=== PATIENT | female | born 2005 | race Caucasian/White ===

== ENCOUNTER 2023-05-08 11:00 | Outpatient (RCR) | payer BC, SELFPAY | END 2023-05-08 12:30 | disposition home or self-care (01) | PROVIDERS: PCP Pediatrics; Visit Provider Orthopaedic Surgery Sports Medicine | DX: M22.2X2 Patellofemoral disorders, left knee (principal); Z51.89 Encounter for other specified aftercare | CPT/HCPCS: 97110; 97112; 97161 ==

== ENCOUNTER 2024-08-12 10:02 | Outpatient (CLI) | payer BC, SELFPAY ==
--- NOTE | 2024-08-12 10:15 | CRLHL7_ITS ---
For Patients: As a result of the Century Cures Act, medical imaging exams and procedure reports are released immediately into your electronic medical record. You may view this report before your referring provider. If you have questions, please contact your health care provider. Technique: Double-contrast upper GI performed after the uneventful administration of effervescent crystals and thick barium followed by thin barium. Small-bowel follow-through then performed. Fluoroscopy time 1 minute 59 seconds.. Indication: ABDOMINAL PAIN, GENERALIZED Comparison: CT 01/29/2024 Findings: Swallowing mechanism: Normal. Esophageal motility: Normal. Gastroesophageal reflux: None. Hernia: None. Esophagus, stomach and duodenal bulb mucosa: Normal mucosa. No stricture or mass. Small bowel: Small bowel transit time 75 minutes. Normal jejunal fold pattern. Unremarkable ileum. No inflammatory changes. No stricture. No fistula. Impression: Normal double-contrast upper GI. Normal small bowel follow-through. Increased stool in the visualized colon could suggest constipation. Dictated by Jeovany Mullen MD @ 08/13/2024 1:30:38 PM (Electronically Signed)
== END 2024-08-12 10:03 | disposition home or self-care (01) ==
PROVIDERS: PCP Family Medicine; Visit Provider Family Medicine
DX: R10.9 Unspecified abdominal pain (principal)
CPT/HCPCS: 74246; 74248

== ENCOUNTER 2024-09-07 00:09 | Emergency (ER) | payer BC, SELFPAY ==
[2024-09-07 00:16] VITALS: BP 132/74; PULSE 99; RESP 20; TEMP 36.9; O2SAT 99; BMI 36.6
--- NOTE | 2024-09-07 00:41 | ED_ITS ---
HPI - General Adult General Chief complaint: Abdominal Pain Stated complaint: Severe abdominal pain Time Seen by Provider: 09/07/24 00:09 Source: patient and family Mode of arrival: ambulatory Limitations: no limitations History of Present Illness HPI narrative: 19-year-old female presents the emergency department with her mother. She has a history of abdominal pain ongoing for 9 months. She has had extensive o utpatient workup per her history regarding this exact same abdominal pain. She reports that the pain was more frustrating than usual tonight she had difficulty sleeping. She tells me that the pain is typically stabbing but then tells me that the pain is typically achy. Pain is located underneath the bilateral ribs but also in the periumbilical area. She has had extensive workup and medication trials. She reports prior colonoscopy, EGD with biopsies, small-bowel follow- through, testing for small bowel bacterial overgrowth. She has seen GI, rheumatology. She has been placed on lots of different elimination diets. The EGD was normal except for some mild gastritis. She reports that she was treated with Prilosec for 3-4 months but did not find helpful, therefore is no longer using it. Reports that she has had multiple CT scans, ultrasound and lab work. Reports no improvement from Tylenol, ibuprofen or Aleve in the past. She was seen in an outside ED, I do not have those records and apparently was given some oxycodone. She reports that it made her feel very drowsy but it did improve her pain. She is not hoping for more of that medication today. She is not noticing any persistent vomiting, bloody stools or any other red flags. Denies significant alcohol intake, prior history pancreatitis or other acute injury, trauma or symptoms today. She presents in the middle of the night with an adult female relative. She has no prior history of abdominal surgery, denies any medication allergies. She is on several medications to help with her pain. Past medical history notable for depression, insomnia. Reports home medications are Celebrex 200 mg twice daily for arthralgias which she has been on since March. Also takes fluoxetine, gabapentin, phentermine, duloxetine and trazodone. Also uses Zofran several times per week. There is also furosemide listed in her chart but she does not report taking that medication. No known drug allergies. Nonsmoker. ROS is notable for the GI symptoms as above. Otherwise benign or stable for her times 12 systems. Related Data Home Medications ?Medication ?Instructions ?Recorded ?Confirmed celecoxib 200 mg capsule 200 mg PO BID 09/07/24 09/07/24 fluoxetine 20 mg capsule 20 mg PO DAILY 09/07/24 09/07/24 furosemide 20 mg tablet 20 mg PO QAM 09/07/24 09/07/24 gabapentin 300 mg capsule 300 mg PO QPM 09/07/24 09/07/24 phentermine 15 mg capsule 15 mg PO DAILY 09/07/24 09/07/24 trazodone 50 mg tablet 50 mg PO QPM 09/07/24 09/07/24 Previous Rx's ?Medication ?Instructions ?Recorded famotidine 20 mg tablet 20 mg PO BID #60 tabs 09/07/24 sucralfate 1 gram tablet 1 g PO TID PRN #90 tabs 09/07/24 Allergies Allergy/AdvReac Type Severity Reaction Status Date / Time No Known Drug Allergies [facility] Verified [facility]07[facility]24 00[facility] Medical History Flat feet ?M21.41 - Flat foot [pes planus] (acquired), right foot (ICD-10) ?M21.42 - Flat foot [pes planus] (acquired), left foot (ICD-10) Anxiety ?F41.9 - Anxiety disorder, unspecified (ICD-10) Sprain of left ankle ?S93.402A - Sprain of unspecified ligament of left ankle, initial encounter (ICD-10) Surgical History [place] teeth extracted ?K08.409 - Partial loss of teeth, unspecified cause, unspecified class (ICD- 10) Social History Smoking Status: Never smoker Second hand tobacco smoke exposure: No How often do you have a drink containing alcohol: never AUDIT-C Alcohol total score: 0 Non-prescribed substance use: denies use Exam Const: Vital Signs, click to edit/add: Vital Signs - 24 hr 09/07/24 00:16 Temperature 98.5 F Pulse Rate [Right Pulse Oximeter] 99 Respiratory Rate 20 Blood Pressure [Ri ght Upper Arm] 132/74 Pulse Oximetry 99 Oxygen Delivery Me thod Room Air Documenting provider has reviewed patient's vital signs: yes General appearance: well kempt Other: Tearful, relies on adult relative to help sit her up when it is clear she really could do this on her own. We do observe her walking from her car to the door but then is wheel chaired in. She is well-nourished, well-hydrated insight does seem good. HENMT: Common normals: normocephalic, moist oral mucous membranes, oropharynx normal and dentition normal Head and scalp: normocephalic Eye: Common normals: conjunctivae normal General eye: normal appearance of both eyes Conjunctiva: conjunctiva(e) normal Neck & C-Spine: Common normals: full ROM and no lymphadenopathy Resp: Common normals: normal respiratory effort, no use of accessory muscles and clear to auscultation bilaterally Effort & inspection: able to speak in complete sentences Auscultation: clear to auscultation bilaterally Cardio: Common normals: regular rate, regular rhythm, S1 normal heart sound, S2 normal heart sound and no murmurs Rate: regular rate Rhythm: regular rhythm Heart sounds: S1 normal and S2 normal GI: Common normals: Normal to inspection, nondistended, normoactive bowel sounds present, soft to palpation, no hepatosplenomegaly and no masses Pal pation: soft and no hepatosplenomegaly Other: Diffusely tender to palpation, seems to linger mostly over the epigastric region. There is certainly no rebound tenderness nor guarding. : Common normals: no CVA tenderness Bladder/kidney exam: no CVA te nderness Back & Pelvis: Common normals: no CVA tenderness and thoracic and lumbar spine normal to inspection Extremity: Common normals: normal to inspection and no pedal edema Neuro: Speech: speech normal Motor exam: strength 5/5 throughout and no movement abnormalities noted Psych: Appearance: well kempt Insight: fair Judgement: fair Skin: Common normals: no rashes or lesions noted General skin exam: no rashes or lesions noted Course Course ED Course: 19-year-old female with chronic abdominal pain and extensive outpatient workup. Differential diagnosis seems more suspicious for chronic gastritis, chronic pain disorder rather than something more acute like appendicitis, pancreatitis, perforated ulcer, gallbladder disease, biliary colic, gallstone or cholecystitis. Exam not suspicious for small bowel obstruction or pelvic etiology. She does report workup for all of these things in the past. Counseled patient that in the emergency department in the middle of the night, I may not have the ability to do any additional tests than what has already been performed. I also will not be reviewing her extensive prior workup to give long-term recommendations today. I would recommend that we check for any acute conditions by performing a CBC, comprehensive metabolic panel to look for biliary obstruction, lipase level, CRP, urinalysis and test. Will give famotidine, GI cocktail and a dose of Carafate to see if this improves her symptoms. I would recommend that she restart famotidine and Carafate as an ou tpatient if this is successful. Reevaluation(s) Time of Reevaluation #1: 01:45 Reevaluation #1: Patient did have improvement with GI cocktail and famotidine, suspected was mainly the GI cocktail. The sucralfate really had not had enough time to work at the time of re-evaluation. We reviewed her labs, current symptoms and treatment plan. At this time, there does not appear to be any emergent or dangerous threats to her health. She was reassured by this. We discussed next steps in management. I would like to start her on famotidine twice daily for the next week. She will follow up with her primary care doctor in a week. She may decrease the famotidine to once daily after 2 weeks. She is given a prescription for sucralfate to take up to 4 times daily but recommend twice daily for now, decreasing as able as symptoms improve over the next few days. Alarm symptoms like hematemesis, bloody stools, high fever, inability to eat and drink were reviewed as indications to come back to the ED and she verbalizes understanding and agreement. We did discuss her Celebrex. At this time the b enefit does seem to outweigh the risk going to think it is contributing to her chronic gastritis. At this time I do think it is safe for her to continue if we can mitigate some of the irritation caused with the famotidine and Carafate. She agrees with this plan and will follow up with her primary care team. Vital Signs Vital signs: Initial Vital Signs Temperature 98.5 F 09/07/24 00:16 Temperature Source Temporal Artery Scan 09/07/24 00:16 Pulse Rate 99 09/07/24 00:16 Respiratory Rate 20 09/07/24 00:16 Blood Pressure 132/74 09/07/24 00:16 Blood Pressure Mean 93 09/07/24 00:16 Blood Pressure Position Sitting 09/07/24 00:16 Pulse Oximetry 99 09/07/24 00:16 Oxygen Delivery Method Room Air 09/07/24 00:16 Vital Signs Temperature 98.5 F 09/07/24 00:16 Pulse Rate 99 09/07/24 00:16 Respiratory Rate 20 09/07/24 00:16 Blood Pressure 132/74 09/07/24 00:16 Pulse Oximetry 99 09/07/24 00:16 Oxygen Delivery Method Room Air 09/07/24 00:16 Temperature 98.5 F 09/07/24 00:16 Pulse Rate 99 09/07/24 00:16 Respiratory Rate 20 09/07/24 00:16 Blood Pressure 132/74 09/07/24 00:16 Pulse Oximetry 99 09/07/24 00:16 Oxygen Delivery Method Room Air 09/07/24 00:16 Medications Administered Medications: Generic Name Dose Route Start Last Admin Trade Name Freq PRN Reason Stop Dose Admin Famotidine 20 mg 09/07/24 09:00 09/07/24 00:57 Famotidine 20 Mg Tablet PO 20 mg DAILY JUDY Administration Lidocaine/Aluminum/Magnesium/Simeth 30 ml 09/07/24 00:38 09/07/24 00:57 Gi Cocktail (Visc Lido/Antacid) 30 Ml PO 09/07/24 00:39 30 ml ONCE ONE Administration Sucralfate 1 gm 09/07/24 00:39 09/07/24 01:16 Sucralfate 1 Gm Tablet PO 09/07/24 00:40 1 gm ONCE ONE Administration Medical Decision Making Lab Data Lab results reviewed: Yes I reviewed the patient's lab results Lab results narrative: Reassuring labs. Labs: Lab Results 09/07/24 09/07/24 Range/Units 00:50 01:05 WBC 8.27 (4.50-11.00) K/uL RBC 4.41 (4.00-5.20) m/uL Hgb 13.3 (12.0-16.0) gm/dL Hct 40.9 (33.0-51.0) % MCV 93 (80-100) fL MCH 30 (26-34) pg MCHC 33 (32-36) gm/dL RDW Coeff of Zayra 12.6 (11.5-15.5) % Plt Count 262 (140-440) K/uL Neut % (Auto) 53.7 (42.0-72.0) % Lymph % (Auto) 37.2 (20-44) % [place] % (Auto) 6.3 (0.0-11.0) % Eos % (Auto) 1.6 (0.0-7.0) % Baso % (Auto) 0.4 (0.0-3.0) % Neut # (Auto) 4.44 (1.7-7.0) K/uL Lymph # (Auto) 3.08 H (0.90-2.90) K/uL [place] # (Auto) 0.50 (0.00-0.90) K/UL Eos # (Auto) 0.13 (0.00-0.50) K/uL Baso # (Auto) 0.03 (0.00-0.30) K/uL Abs Immat Gran (auto) 0.07 (0.00-0.30) K/uL Imm/Tot Granulo (auto) 0.8 % Sodium 137 (135-149) mmol/L Potassium 4.3 (3.6-5.1) mmol/L Chloride 104 (96-114) mmol/L Carbon Dioxide 26 (20-32) mmol/L Anion Gap 7 (7-15) mEq/L BUN 14 (5-24) mg/dL Creatinine 0.7 (0.5-1.5) mg/dL Estimated Creat Clear 114.40 Estimated GFR 126 ml/min Glucose 93 (60-115) mg/dL Calcium 9.6 (8.4-10.6) mg/dL Total Bilirubin < 0.1 L (0.1-1.5) mg/dL AST 32 (12-35) U/L ALT 47 H (4-35) U/L Alkaline Phosphatase 112 (40-150) U/L C-Reactive Protein 1.1 H (0.5-1.0) mg/dL Total Protein 7.2 (6.0-8.3) g/dL Albumin 4.0 (3.3-5.0) g/dL Lipase 45 (23-300) U/L Urine Color Yellow (Yellow) Urine Appearance Clear (Clear) Urine pH 6.5 (5.0-8.5) Ur Specific [place] 1.020 (1.000-1.030) Urine Protein Negative (Negative) Urine Glucose (UA) Negative (Negative) Urine Ketones Negative (Negative) Urine Blood Trace-intact A (Negative) Urine Nitrite Negative (Negative) Urine Bilirubin Negative (Negative) Urine Urobilinogen 0.2 (0.2-1.0) Ur Leukocyte Esterase Negative (Negative) Urine RBC 0-2 (0-2) Urine WBC 2-5 (0-5) Ur Squamous Epith Cells Few (None-Few) Amorphous Sediment Few A (None) Urine Bacteria Moderate A (None) Urine HCG, Qual Negative (Negative) Discharge Plan Discharge Clinical Impression: Chronic gastritis Patient Disposition: Home w/ Parent or Adult Condition: Improved Instructions: Gastritis (DC), Diet for Stomach Ulcers and Gastritis (ED) Additional Instructions: As we discussed, I think that your pain is complex. I do think that there is an element of chronic abdominal pain but there is also likely some acute irritation causing worsening of your symptoms today. This is very common in people that take NSAIDs like Celebrex. Celebrex is actually the safest of that family of medications but is still likely to cause some chronic irritation. Try to avoid any drinks with carbonation. Obviously avoid alcohol and smoking. I would rec ommend that you start taking famotidine 20 mg twice daily for the next couple of weeks and then you may decrease it to once daily. While the pain is still bothersome, I would recommend adding and Carafate also known as sucralfate up to 4 times daily for abdominal pain. For most people, twice daily is sufficient, weaning off of this as your symptoms improve over the next few days. Please make a follow-up appoint with her primary care doctor in week to update him or her on how things are going on this new medication regimen. At this time, I do not think that you need to stop the Celebrex or any of the other medications that could possibly be contributing. I think we just need to find a medication to help balance out some of those side effects for you. Remember that the emergency department is unfortunately not a great place to workup chronic symptoms. You should come back if you have severe vomiting, signs of rectal bleeding, very high fever or have been unable to hold down any liquids for over 16 hours. Prescriptions: New famotidine 20 mg tablet 20 mg PO BID Qty: 60 2RF sucralfate 1 gram tablet 1 g PO TID PRNQty: 90 0RF No Action celecoxib 200 mg capsule 200 mg PO BID trazodone 50 mg tablet 50 mg PO QPM phentermine 15 mg capsule 15 mg PO DAILY gabapentin 300 mg capsule 300 mg PO QPM furosemide 20 mg tablet 20 mg PO QAM fluoxetine 20 mg capsule 20 mg PO DAILY Follow Up/Referrals: Darlene Erwin MD [Primary Care Provider] - Stand Alone Forms: [facility] Info Instructions
[2024-09-07 00:57] LABS: Basophils Absolute Auto 0.03 K/uL (0.00-0.30); Basophils Percent Auto 0.4 % (0.0-3.0); Eosinophils Absolute Auto 0.13 K/uL (0.00-0.50); Eosinophils Percent Auto 1.6 % (0.0-7.0); Hematocrit 40.9 % (33.0-51.0); Hemoglobin* 13.3 gm/dL (12.0-16.0); Immature Granulocytes Abs Auto 0.07 K/uL (0.00-0.30); Immature Granulocytes Pct Auto 0.8 %; Lymphocytes Absolute Auto 3.08 K/uL (0.90-2.90); Lymphocytes Percent Auto 37.2 % (20-44); Mean Corpuscular HGB Conc 33 gm/dL (32-36); Mean Corpuscular Hemoglobin 30 pg (26-34); Mean Corpuscular Volume 93 fL (80-100); Monocytes Percent Auto 6.3 % (0.0-11.0); Neutrophils Absolute Auto 4.44 K/uL (1.7-7.0); Neutrophils Percent Auto 53.7 % (42.0-72.0); Platelet Count* 262 K/uL (140-440); RDW Coefficient of Variation % 12.6 % (11.5-15.5); Red Blood Count 4.41 m/uL (4.00-5.20); White Blood Count* 8.27 K/uL (4.50-11.00)
[2024-09-07] MEDS: FAMOTIDINE 20 MG TABLET PO (00:57)
[2024-09-07] MEDS: GI COCKTAIL (VISC LIDO/ANTACID) 30 ML PO (00:57)
[2024-09-07 01:05] LABS: Slide Review Reflex No
[2024-09-07 01:10] LABS: Chloride* 104 mmol/L (96-114)
[2024-09-07 01:11] LABS: Potassium* 4.3 mmol/L (3.6-5.1); Sodium* 137 mmol/L (135-149)
[2024-09-07 01:13] LABS: Alkaline Phosphatase* 112 U/L (40-150); Anion Gap 7 mEq/L (7-15); Aspartate Amino Transferase* 32 U/L (12-35); Carbon Dioxide* 26 mmol/L (20-32); Creatinine* 0.7 mg/dL (0.5-1.5); Estimated Glomerular Filt Rate 126 ml/min; Lipase* 45 U/L (23-300); Total Protein* 7.2 g/dL (6.0-8.3)
[2024-09-07 01:14] LABS: Alanine Aminotransferase* 47 U/L (4-35); Blood Urea Nitrogen* 14 mg/dL (5-24); Calcium* 9.6 mg/dL (8.4-10.6); Glucose* 93 mg/dL (60-115)
[2024-09-07 01:16] LABS: C Reactive Protein* 1.1 mg/dL (0.5-1.0)
[2024-09-07] MEDS: SUCRALFATE 1 GM TABLET PO (01:16)
[2024-09-07 01:17] LABS: Bilirubin Total* < 0.1 mg/dL (0.1-1.5)
[2024-09-07 01:18] LABS: Appearance Urine Clear (Clear); Bilirubin Urine Negative (Negative); Blood Urine Trace-intact (Negative); Color Urine Yellow (Yellow); Glucose Urine Negative (Negative); Ketones Urine Negative (Negative); Leukocyte Esterase Urine Negative (Negative); Nitrite Urine Negative (Negative); Protein Urine Negative (Negative); Urobilinogen Urine 0.2 (0.2-1.0); pH Urine 6.5 (5.0-8.5)
[2024-09-07 01:19] LABS: Ur HCG Qualitative* Negative (Negative)
[2024-09-07 01:42] LABS: Amorphous Sediment Urine Few; Bacteria Urine Moderate; RBC Urine 0-2 (0-2); Squamous Epithelial Cell Urine Few (None-Few)
[2024-09-07 01:49] VITALS: BP 124/68; PULSE 84; RESP 20; TEMP 36.9; O2SAT 99
[2024-09-07 01:50] VITALS: BP 124/68; PULSE 84; RESP 20; TEMP 36.9
== END 2024-09-07 01:50 | disposition home or self-care (01) ==
PROVIDERS: Emergency Provider Family Medicine; PCP Family Medicine
DX: K29.50 Unspecified chronic gastritis without bleeding (principal)
CPT/HCPCS: 36415; 80053; 81001; 81003; 81025; 83690; 85025; 86140; 87086; 99283; 99284; A9270

== ENCOUNTER 2025-09-24 20:19 | Emergency (ER) | payer BC, SELFPAY ==
--- OUTSIDE RECORDS SUMMARY | 2024-04-23 08:08 | XMS_ITS | Continuity of Care Document ---
Author Organization [facility] Address [address] [address] [place] [address] Phone Care Team Providers Care Sole Painter Name Role Phone Unavailable Unavailable Unavailable Allergies, Adverse Reactions, Alerts Substance Reaction Status Criticality peanut Abdominal bloating Active No Inform ation mushroom Active No Information adhesive tape Rash Active No Information Medications Medication Instructions Dosage Effective Dates (start - stop) Status Comments Prozac 10 mg capsule take 0.5 capsule by oral route every day 5 MG - Active Control Pill ORAL TABLET Take one tablet by mouth daily - Active Prilosec OTC 20 mg tablet,delayed release take 1 tablet by oral route every day 1 tablet - Active iron 325 mg (65 mg iron) tablet take 1 tablet by oral route every day 325 MG - Active Procedures Procedure Date Interpretation Breath Test Offic/outpt E&m Estab Mod-hi 2 Routine Serum Collection Colonoscopy Flex; W/remov Les- Colonoscopy Flex; W/bx 1/mx Level Iv-surg Path Gross/micro Advance Directives Directive Yes / No Effective Date File Name No Information Encounters Encounter Description Practice Location Reason(s) For Visit Diagnoses Date Provider Providers Copied on Encounter [facility], [address] [address], [place], [id number], [place] tel:[phone] [facility] No Information 4 No Information [facility], [address] [address], [place], [place], [id number], [place] tel:[phone] [facility] Abdominal distension (gaseous) 4 Renato KIM Oscar. [address] [facility], [facility] [address], [place], [id number], [place]. tel:[phone] Referring Provider: Darlene Goodson, [address], [place], [address]. tel:[phone] Offic/outpt E&m Estab Mod-hi 2 [facility], [address] [address], [place], [place], [id number], [place] tel:[phone] [facility] GI Symptoms or Concerns (chief complaint) Generalized abdominal painLoose stoolsBloating 4 Margaret Florian. [address] [facility], [address], [id number], [place]. tel:[phone] Referring Provider: Referral Self, USE FOR SELF REFERRALS. [facility], [address] [address], [place], [place], [id number], [place] tel:[phone] [facility] No Information 4 Franklin Davison. [address] [facility], [address], [id number], [place]. tel:[phone] [facility], [address] [address], [place], [place], [id number], [place] tel:[phone] [facility] GI Symptoms or Concerns (chief complaint) Colorectal polyp detected on colonoscopyLoos e stoolsAbnormal abdominal CT scanBenign neoplasm of ascending colonAbnormal findings on dx imaging of prt digestive tractRight upper quadrant painAbnormal findings on dx imaging of prt digestive tractOther fecal abnormalities 4 Tu Alarcon. [address] [facility], [address], [id number], [place]. tel:[phone] Referring Provider: Darlene Goodson, [address], [place], [address]. tel:[phone] [facility], [address] [address], [place], [place], [id number], [place] tel:[phone] [facility] No Information Franklin Davison. [address] [facility], [facility] [address], [place], [place], [id number], [place]. tel:[phone] Family History Family Member Type Diagnosis Age At Onset Sister Problem (finding) GERD Father Problem (finding) Colon polyps Father Problem (finding) Alcoholism Mother Problem (finding) Colon polyps Sister Problem (finding) Irritable bowel syndrom e Immunizations Vaccine Date Status Comments Afluria Qd administered Note: [facility] bi-directional interface ; Source: Other Registry SARS-COV-2 (COVID-19) vaccin e, mRNA, spike protein, LNP, preservative free, 50 mcg/0.5 mL dose administered Note: [facility] bi-direct ional interface ; Source: Other Registry SARS-COV-2 (COVID-19) vaccin e, mRNA, spike protein, LNP, preservative free, 30 mcg/0.3mL dose administered Note: [facility] bi-direct ional interface ; Source: Other Registry SARS-COV-2 (COVID-19) vaccin e, mRNA, spike protein, LNP, preservative free, 30 mcg/0.3mL dose administered Note: [facility] bi-direct ional interface ; Source: Other Registry SARS-COV-2 (COVID-19) vaccin e, mRNA, spike protein, LNP, preservative free, 30 mcg/0.3mL dose administered Note: [facility] bi-direct ional interface ; Source: Other Registry Afluria Qd administered Note: [facility] bi-directional interface ; Source: Other Registry Influenza, injectable, Madin Karen Canine Kidney, quadrivalent with preservative administered Note: [facility] bi-direct ional interface ; Source: Other Registry meningococcal oligosaccharid e (groups A, C, Y and W-135) diphtheria toxoid conjugate vaccine (MCV4O) administered Note: [facility] bi-direct ional interface ; Source: Other Registry Afluria Qd administered Note: [facility] bi-directional interface ; Source: Other Registry Afluria Qd administered Note: [facility] bi-directional interface ; Source: Other Registry Afluria Qd administered Note: [facility] bi-directional interface ; Source: Other Registry Havrix pediatric administered Note: [facility] bi-directional interface ; Source: Other Registry human papilloma virus vaccin e, quadrivalent administered Note: [facility] bi-direct ional interface ; Source: Other Registry human papilloma virus vaccin e, quadrivalent administered Note: [facility] bi-direct ional interface ; Source: Other Registry meningococcal oligosaccharid e (groups A, C, Y and W-135) diphtheria toxoid conjugate vaccine (MCV4O) administered Note: [facility] bi-direct ional interface ; Source: Other Registry Afluria Qd administered Note: [facility] bi-directional interface ; Source: Other Registry Havrix pediatric administered Note: [facility] bi-directional interface ; Source: Other Registry tetanus toxoid, reduced diphtheria toxoid, and acellular pertussis vaccine, adsorbed administered Note: [facility] b i-directional interface ; Source: Other Registry human papilloma virus vaccin e, quadrivalent administered Note: [facility] bi-direct ional interface ; Source: Other Registry influenza virus vaccine, isaac e, attenuated, for intranasal use administered Note: [facility] bi- directional interface ; Source: Other Registry Influenza, seasonal, injecta ble, preservative free administered Note: [facility] bi-direct ional interface ; Source: Other Registry Influenza, seasonal, injecta ble, preservative free administered Note: [facility] bi-direct ional interface ; Source: Other Registry Influenza, seasonal, injectable administe red Note: [facility] bi- directional interface ; Source: Other Registry Novel [id number], all formulations administered Note: [facility] bi-direct ional interface ; Source: Other Registry Influenza, seasonal, injecta ble, preservative free administered Note: [facility] bi-direct ional interface ; Source: Other Registry measles, mumps and rubella v irus vaccine administered Note: [facility] bi-direct ional interface ; Source: Other Registry poliovirus vaccine, inactivated administe red Note: [facility] bi- directional interface ; Source: Other Registry diphtheria, tetanus toxoids and acellular pertussis vaccine administered Note: [facility] b i-directional interface ; Source: Other Registry varicella virus vaccine administered Note : [facility] bi-directional interface ; Source: Other Registry influenza virus vaccine, isaac e, attenuated, for intranasal use administered Note: [facility] bi- directional interface ; Source: Other Registry Influenza, seasonal, injectable administe red Note: [facility] bi- directional interface ; Source: Other Registry Influenza, seasonal, injectable administe red Note: [facility] bi- directional interface ; Source: Other Registry DTaP-Haemophilus influenzae type b conjugate vaccine administered Note: [facility] bi-direct ional interface ; Source: Other Registry Pneumovax administered Note: [facility] bi-d irectional interface ; Source: Other Registry Influenza, seasonal, injectable administe red Note: [facility] bi- directional interface ; Source: Other Registry varicella virus vaccine administered Note : [facility] bi-directional interface ; Source: Other Registry measles, mumps and rubella v irus vaccine administered Note: [facility] bi-direct ional interface ; Source: Other Registry DTaP-hepatitis B and poliovi kaleigh vaccine administered Note: [facility] bi-direct ional interface ; Source: Other Registry Pneumovax administered Note: [facility] bi-d irectional interface ; Source: Other Registry Haemophilus influenzae type b vaccine, HbOC conjugate administered Note: [facility] bi-di rectional interface ; Source: Other Registry DTaP-hepatitis B and poliovi kaleigh vaccine administered Note: [facility] bi-direct ional interface ; Source: Other Registry Pneumovax administered Note: [facility] bi-d irectional interface ; Source: Other Registry Haemophilus influenzae type b vaccine, HbOC conjugate administered Note: [facility] bi-di rectional interface ; Source: Other Registry DTaP-hepatitis B and poliovi kaleigh vaccine administered Note: [facility] bi-direct ional interface ; Source: Other Registry Pneumovax administered Note: [facility] bi-d irectional interface ; Source: Other Registry Haemophilus influenzae type b vaccine, HbOC conjugate administered Note: [facility] bi-di rectional interface ; Source: Other Registry Energix Pediatric administered Note: [facility] bi-directional interface ; Source: Other Registry Payers Payer name Insurance type Covered democrat ID Dinesh byrne(s) [facility] [id number] Social History Type Description Quantity Date Captured Comments Sex Female Smoking Status No Information Chief Complaint And Reason For Visit No Information Reason For Referral Reason For Referral No Information History Of Present Illness Encounter Date Complaint History Of Prese nt Illness GI Symptoms or Concerns Rico is a pleasant 18-year-old female who presents for evaluation of abdominal pain, nausea, irregular bowel habits. Patient developed acute onset of right lower quadrant abdominal pain at the end of November. She described the pain as sharp and stabbing. She presented to the emergency room where a CT scan and an ultrasound were obtained. CT scan revealed several borderline right lower quadrant mesenteric lymph nodes, likely infectious or inflammatory, otherwise no inflammatory changes in the GI tract, as well as fecal loading in the proximal colon and rectum. Ultrasound was normal with no evidence of stones or sludge.She then had an EGD while at school in [place]. Upper endoscopy revealed reflux esophagitis grade B with negative celiac biopsies and negative H pylori biopsies. A colonoscopy was done 02/18/2024 through [facility]. Colonoscopy. Endoscopically normal through the terminal ileum. One 15mm sessile serrated adenoma was removed from the ascending colon. Random GI Symptoms or Concerns Functional Status Date Functional Assessmen t No Information Instructions Date Instruction Additional Infor mation Colon Cancer Prevention Related to Colorectal polyp detected on colonoscopy Colon Polyps Related to Color ectal polyp detected on colonoscopy Assessments Type Assessment Date No Information Patient Care Teams Name Effective Dates (start - stop) Status Members No Information
--- OUTSIDE RECORDS SUMMARY | 2025-09-24 20:21 | XMS_ITS | Clinical Summary ---
Author Organization [facility] Address [address] [facility] [place] [address] Care Team Providers Care Carpenter Mold Name Role Phone Darlene Erwin Primary Care Provider [phone] Pepito Tejada MD Unavailable [phone] Pepito Tejada MD Unavailable [phone] Allergies Active AllergyReactionsCriticalityNoted DateCommentsAlmond BzwLliqc25/27/2024 [place] Nuts only Beef ZysktqsBbkbn07/27/2024lue Dyes (Parenteral)Hives12/24/2023at DanderHives, Other (See Comments)Kktlhi6904/29/2022LactoseDiarrhea,Other (See Comments),Nausea 04/29/20227420UkvmfxjpYxmkqlmitkbUipf13/04/0747FdqynhQyficBqkcmg08/17/2023No Known Drug Vvcboyj8306/20/2003PineAnaphylaxis,Other (See Comments)High04/14/2023 Abdominal pain Medications MedicationSigDispense QuantityRefillsLast FilledStart DateEnd DateStatus celecoxib (CELEBREX) 200 MG capsule Take 200 mg by mouth04/12/2024ctive dicyclomine (BENTYL) 20 MG tablet Take 20 mg by mouth01/01/2024ctive vitamin D2 (ERGOCALCIFEROL) 24783 units (1250 mcg) capsule Take 1 capsule by mouth once a weekActive traZODone (DESYREL) 50 MG tablet Take 1 tablet by mouth at bedtime.05/04/2024ctive DULoxetine (CYMBALTA) 30 MG capsule Take 30 mg by mouth.07/30/2024ctive ferrous sulfate (FE TABS) 325 (65 Fe) MG EC tablet Take 325 mg by mouth.Active norethindrone-ethinyl estradiol (JUNEL FE 10/18) 1-20 MG-MCG tablet Take 1 tablet by mouth daily.Active gabapentin (NEURONTIN) 300 MG capsule Take 1 capsule by mouth at bedtime.07/30/2024ctive ondansetron (ZOFRAN) 8 MG tablet Take by mouth.Active famotidine (PEPCID) 20 MG tablet Take 20 mg by mouth.5Active Active Problems ProblemNoted DateDiagnosed DateAcquired deformity of head2003 Overview (06/29/2015): Problem list name updated by automated process. Provider to review Immunizations ImmunizationAdministration DatesNext DueDTAP (<7y)05/26/2008DTaP/HepB/IPV 2003,2003,2003HIB (PRP-T)2003,2003,2003HepB 2003Influenza (H1N1)09/15/2009Influenza (IIV3) PF08/14/2012,09/15/2009, 08/14/2006,07/09/2005,07/23/2004Influenza Intranasal Ljzsqge1308/11/2007MMR (MMRII)05/26/2008,05/09/2004Pneumococcal (PCV 7)07/23/2004,2003,2003 ,2003Poliovirus, inactivated (IPV)05/26/2008TRIHIBIT (DTAP/HIB, <7y) 07/23/2004Varicella (Varivax)05/26/2008,05/09/2004 Family History Medical HistoryRelationCommentsCancerMaternal GrandfatherskinDepressionMaternal Grandmothertaking PaxilDepressionMaternal UncleAllergiesMotherCancerPaternal GrandfatherskinAlcohol/DrugPaternal Grandmotherdied 1997RelationStatusComments Maternal GrandfatherMaternal GrandmotherMaternal UncleMotherAliveLisaPaternal GrandfatherPaternal GrandmotherSisterAliveMadeline (Twin A) Social History Tobacco UseTypesPacks/DayYears UsedDateSmoking Tobacco: NeverAlcohol UseStandard Drinks/WeekCommentsNot Asked0 (1 standard drink = 0.6 oz pure alcohol)PHQ-2 AnswerDate RecordedPHQ-2 Afslf5205Adolescent EducationAnswerDate Recorded Getting School Help NeededNot on file4CommentsNoSex and Gender InformationValueDate RecordedSex Assigned at BirthNot on fileLegal SexFemale 08/02/2012 4:29 AM CSTGender IdentityNot on fileSexual OrientationNot on file Last Filed Vital Signs Vital SignReadingTime TakenCommentsBlood Bjnvywek091/8404/23/2024 5:55 PM CDT Lnyge83880/26/2024 5:55 PM VKJKhkmpdmzsqs65.7 ??C (98 ??F)04/23/2024 7:29 PM CDT Respiratory Jlmx4184 11:00 PM CDTOxygen Lezhmmpsqz28%04/23/2024 11:00 PM CDTInhaled Oxygen Concentration--Vpcmqb01.3 kg (210 lb)04/23/2024 5:55 PM CDT Tuioyn654.1 cm (5' 5)04/23/2024 5:55 PM CDTBody Mass Index34.9507 5:55 PM CDT Plan of Treatment Health MaintenanceDue DateLast DoneCommentsADVANCE CARE UPESDESH2003ANNUAL REVIEW OF HM TXZQZI30 2003CHLAMYDIA WHYDTSCQL2003HIV SCREENING 2018MENINGITIS B VACCINE (1 of 2 - Standard)2019HEPATITIS C TTXJAXBOH36/24/2021YEARLY PREVENTIVE VISIT/11/2019, 08/14/2012, 04/09/2011, Additional history gecratQGZ35/24/2024DTAP/TDAP/TD VACCINE (7 - Td or Tdap)/, 05/26/2008, 07/23/2004, Additional history exists COVID-19 VACCINE ( season), 09/19/2021, 02/13/2021, Additional history existsINFLUENZA VACCINE (#1)5111/19/2022, 06/01/2020, 10/02/2019, Additional history existsZOSTER VACCINE (1 of 2) 2053HEPATITIS B WJREABPKvnqqwxwl23/26/2004, 2003, 2003, Additional history existsPNEUMOCOCCAL VACCINE: PEDIATRICS (0 to 5 YEARS) AND AT- RISK PATIENTS (6 to 49 YEARS)Aged Out07/23/2004, 2003, 2003, Additional history existsNo longer eligible based on patient's age to complete this topicHPV NUMDDFASnrrydlcy52/16/2015, 08/04/2014, 05/17/2014MENINGITIS ZDVZKZJApanqjcwq74/20/2019, 06/16/2014PHQ-2 (once per calendar year)Completed 10/07/2024, 08/17/2024 Insurance Care Teams Team MemberRelationshipSpecialtyStart DateEnd Darlene Erwin [facility] [place] [address] PCP - GeneralFamily Medicine04/23/24 Pepito Tejada MD [address] [place] [address] IJRtqmrxjeyijtt11/6/24 Pepito Tejada MD [address] [place] [address] Assigned Surgical Pjimbani71/23/24
--- OUTSIDE RECORDS SUMMARY | 2025-09-24 20:21 | XMS_ITS | Clinical Summary ---
[facility] Address [address] [place] [address] Care Team Providers Care Sponsorship Manager Name Role Phone Unavailable Primary Care Provider Unavailabl e Source Comments You are receiving this document as you are listed as the primary care provider,follow-up provider, or the patient has been referred to you for consultation.This is in compliance with the Medicare andMedicaid EHR Incentive Program,which states Providers who transition their patient to another setting of careor provider of care or refers their patient to another provider of care shouldprovide summary care record for each transition of care or referral. [facility] Allergies Active AllergyReactionsCriticalityNoted DateCommentsLactoseDiarrhea, Gastrointestinal,Fhyynl2704/29/2022[place]akeAnaphylaxis,Hives,Itching,Rash, Respiratory UhoekbjtXdgl49/01/7247MisksxqzZwgfepnbblkYeru43/04/2024NickelHives High3PineOther, see cbpyqkvj75/17/2023 Abdominal pain Medications MedicationSigDispense QuantityRefillsLast FilledStart DateEnd DateStatus celecoxib (CELEBREX) 200 MG capsule Take 1 Capsule (200 mg) by mouth.4Active DULoxetine (CYMBALTA) 60 MG capsule Take 1 Capsule (60 mg) by mouth.5Active famotidine (PEPCID) 20 MG tablet Take 1 Tablet (20 mg) by mouth two times a day.Active furosemide (LASIX) 20 MG tablet Take 1 Tablet (20 mg) by mouth daily.Active gabapentin (NEURONTIN) 300 MG capsule Take 1 Capsule (300 mg) by mouth daily at bedtime.Active ondansetron (ZOFRAN) 4 MG tablet Take 1 Tablet (4 mg) by mouth two times a day.Active Phentermine HCl 30 MG capsule Take 1 Capsule (30 mg) by mouth daily.5Active traZODone (DESYREL) 50 MG tablet Take 1 Tablet (50 mg) by mouth.5Active Zinc Sulfate (ZINC 15 OR) Active fexofenadine (RED) 180 MG tablet Take 1 Tablet (180 mg) by mouth daily as needed.Active cholecalciferol (VITAMIN D3) 25 MCG (1000 UT) tablet Take 1 Tablet (1,000 Units) by mouth daily.Active Social History Tobacco UseTypesPacks/DayYears UsedDateSmoking Tobacco: Never Assessed CommentsUnknownSex and Gender InformationValueDate RecordedSex Assigned at Not on fileLegal MdtYehgea71/10/2025 8:42 AM CSTGender IdentityNot on fileSexual OrientationNot on file Last Filed Vital Signs Vital SignReadingTime TakenCommentsBlood Pressure--Pulse--Temperature-- Respiratory Rate--Oxygen Saturation--Inhaled Oxygen Concentration--Oaaugh975.9 kg (231 lb 3.2 oz)11/25/2024 1:02 PM KITLcpfjl737.8 cm (5' 4.5)11/25/2024 1:02 PM CSTBody Mass Index39.0711/25/2024 1:02 PM [employer] Plan of Treatment Health MaintenanceDue DateLast DoneCommentsCervical Cancer Screening Due 2003 7551Ehhhxgmjb2003Hep C Screening (Preventive Services)2003MenB Immunization Yohxgwtdna2003HIV Screening (Preventive Services)2019 Adult Preventive Visit2021HepB Vaccine (1)2COVID-19 Vaccine ( season)/, 09/19/2021, 02/13/2021, Additional history existsInfluenza Vaccine (#1)/, 06/01/2020, 10/02/2019, Additional history existsDTaP/Tdap/Td Vaccine (8 - Tdap)5011/02/2024, 05/17/2014, 05/26/2008, Additional history existsZoster/Shingles Vaccine (1 of 2)2053Hib GxandtqPydtmbbcs54/25/2004, 2003, 2003, Additional history existsPneumococcal VaccineAged Out07/23/2004, 2003, 2003, Additional history existsNo longer eligible based on patient's age to complete this topicIPV (Polio) WxsbwssCyduirtwx73/28/2008, 2003, 2003, Additional history existsHPV UgcrkneBndwozxht38/16/2015, 08/04/2014, 05/17/2014 HepA TuxlstfPqrjiktrg01/11/2015, 05/17/2014MCV4 SmtjycqJjaowylcj53/20/2019, 06/16/2014 Insurance * Guarantor: Yusra JacquesAccount TypeRelation to PatientDate of BirthPhone Billing AddressPersonal/ZmadcwMlvs2003 ([place]) [address] [place] [address]
--- OUTSIDE RECORDS SUMMARY | 2025-09-24 20:21 | XMS_ITS | Clinical Summary ---
Author Organization [facility] Address [address] [place] [address] Care Team Providers Care Outreach Rep Name Role Phone Darlene Erwin MD Primary Care Provide r Robert Rogel MD Unavailable Mark Al MD Unavailab le Allergies Active AllergyReactionsCriticalityNoted DateCommentsBasilAnaphylaxisHigh 5Beef Containing ProductsOther - Describe In Comment Field,HivesMedium 04/14/2023 Abdominal pain/nausea Blue CulHkzz8104/14/2023at DanderHives,Runny Nose,Other - Describe In Comment QfhipSxzvhn74/01/3900HmflbohgLguyoveuummVklg60/26/2025Emollient Combination No.93Ehnlf7912/08/2023LactoseDiarrhea,Intolerance-Can't Take,Nausea Only,GI Upset 04/29/2022[place] MushroomAnaphylaxis,Hives,Itching,Rash,Shortness Of Breath, Respiratory KbibatraFjrj43/01/1764PrlmxeetButpxcjtwfhEvji85/04/2024NickelHives High04/14/2023Unlisted Allergen (Include Detail In Comments)Hives04/14/2023 Gold plating [place] NutOther - Describe In Comment Field07/ Abdominal pain PsmnrntuhxJqejuaylexzAmjh77/26/2025 Medications MedicationSigDispense QuantityRefillsLast FilledStart DateEnd DateStatus sucralfate (CARAFATE) 1 gram tablet Take 1 Tablet by mouth once daily if needed.4Active acetaminophen (TYLENOL) 325 mg tablet Indications:Abdominal pain, unspecified abdominal locationTake 3 Tablets (975 mg) by mouth every 6 hours. Max acetaminophen dose: 4000mg in 24 hrs.11/08/2024 Active zinc sulfate (ZINC-15 ORAL) Active cholecalciferol 1,000 unit tablet Take 1,000 units by mouth once daily.Active fexofenadine 180 mg tablet Indications:Allergic to catsTake 180 mg by mouth once daily.5Active EPINEPHrine (EPIPEN) 0.3 mg/0.3 mL auto-injector Indications:Food allergyInject 0.3 mg (1 Pen) intramuscular each time if needed for Allergic Reaction. 2 Each 5Active orlistat (XENICAL) 120 mg capsule Indications:Class 3 severe obesity with body mass index (BMI) of 40.0 to 44.9 in adult (HC)Take 1 Capsule by mouth three times daily with meals. 90 Capsule 5Active traZODone (DESYREL) 100 mg tablet Indications:Insomnia, idiopathicTake 1 Tablet (100 mg) by mouth at bedtime. 100 Tablet 5Active ondansetron (ZOFRAN) 8 mg tablet Indications:NauseaTake 1 Tablet (8 mg) by mouth every 8 hours if needed for Nausea/Vomiting. 100 Tablet 5Active furosemide (LASIX) 40 mg tablet Indications:IIH (idiopathic intracranial hypertension)Take 1 Tablet (40 mg) by mouth once daily in the morning. 90 Tablet 5Active colchicine 0.6 mg tablet Indications:Undifferentiated connective tissue disease (HC),Arthralgia, unspecified jointTake 1 Tablet (0.6 mg) by mouth two times daily. 60 Tablet 5Active celecoxib 200 mg capsule Indications:Abdominal pain, unspecified abdominal locationTake 1 Capsule (200 mg) by mouth 2 times daily if needed for Pain. 100 Capsule 5Active DULoxetine (CYMBALTA) 20 mg Delayed-release capsule Indications:Adjustment disorder with depressed moodTake 2 Capsules (40 mg) by mouth once daily. 180 Capsule 5Active azithromycin (Zithromax Z-Ab) 250 mg tablet Indications:BronchitisTake 500 mg today and then 250 mg days 2-5 6 Tablet 5Active predniSONE (DELTASONE) 10 mg tablet Indications:BronchitisTake 3 Tablets (30 mg) by mouth once daily with a meal for 2 days, THEN 2 Tablets (20 mg) once daily with a meal for 2 days, THEN 1 Tablet (10 mg) once daily with a meal for 2 days. 12 Tablet 6Active colchicine 0.6 mg capsule Indications:Abdominal pain, unspecified abdominal location,Recurrent fever, Recurrent oral ulcersTake 1 Capsule (0.6 mg) by mouth two times daily. Please call for refills 180 Capsule Discontinued(*Med complete/Regimen complete/Level of care change) traZODone (DESYREL) 100 mg tablet Indications:Insomnia, idiopathicTake 1 Tablet (100 mg) by mouth at bedtime. 100 Tablet Discontinued(Reorder (E-cancel not sent)) norethin clarisa-eth estrad-fe (1-20 mg-mcg) (LOESTRIN FE 10/18; JUNEL FE 10/18) tablet Indications:Irregular periodsTake 1 Tablet by mouth once daily. 84 Tablet Discontinued(*Med complete/Regimen complete/Level of care change) naltrexone 4.5 mg cap Indications:Chronic pain disorderTake 1 Capsule by mouth once daily. 90 Capsule Discontinued(*Med complete/Regimen complete/Level of care change) ondansetron (ZOFRAN) 8 mg tablet Indications:NauseaTake 1 Tablet (8 mg) by mouth every 8 hours if needed for Nausea/Vomiting. 270 Tablet Discontinued(Reorder (E-cancel not sent)) celecoxib (CELEBREX) 200 mg capsule Indications:Abdominal pain, unspecified abdominal locationTake 1 Capsule (200 mg) by mouth 2 times daily if needed for Pain. 100 Capsule Discontinued(Reorder (E-cancel not sent)) DULoxetine (CYMBALTA) 60 mg Delayed-release capsule Indications:Adjustment disorder with depressed moodTake 1 Capsule (60 mg) by mouth once daily. 90 Capsule Discontinued(*Medication adjustment) famotidine (PEPCID) 20 mg tablet Indications:Continuous severe abdominal painTake 1 Tablet (20 mg) by mouth two times daily. 180 Tablet Discontinued(*Med complete/Regimen complete/Level of care change) furosemide (LASIX) 40 mg tablet Indications:IIH (idiopathic intracranial hypertension)Take 1 Tablet (40 mg) by mouth once daily in the morning. 90 Tablet Discontinued(Reorder (E-cancel not sent)) colchicine 0.6 mg tablet Indications:Undifferentiated connective tissue disease (HC),Arthralgia, unspecified jointTAKE ONE TABLET BY MOUTH TWICE A DAY 60 Tablet Discontinued(Reorder (E-cancel not sent)) Active Problems ProblemNoted DateDiagnosed DateMPP Encounter for nonprocreative genetic counseling and iavkwza7203/08/2025 Overview (03/08/2025): ADULT GC SRO - Completed [x] Patient name: Yusra Mckeon : 2005 Age: 19 y.o. Date of SRO: 03/08/2025 REFERRING PROVIDER/CLINIC LOCATION/FAX #: Mark Al MD [facility] Reason for referral: Periodic febrile genetic test Please schedule the following: [x] Genetic Counseling []15 [] 30 [x]45 []60 []Lab [] [facility] - Language Location ONLY WITH AV, MARTA, AP, or MAF [] In-person [] Virtual [x] Either Comments: See provider note for testing details Date:03/08/2025 GC: Sherly Bhatt, MS, CGC Urgency: 1-3 weeks *Please note, cannot be scheduled earlier than 1 week from SRO completion Abdominal pain, oezkpsdbxso65/22/2025Elevated C-reactive protein (CRP)01/18/2025 Continuous severe abdominal pain01/18/2025Empty sella10/22/2024IIH (idiopathic intracranial hypertension)05/04/2024Generalized anxiety zbpmeorm12/13/2021 Lactose yzqptvqncbq58/03/2020Irregular uqoirrj9506/01/2020 Resolved Problems ProblemNoted DateDiagnosed DateResolved UbjcLtidbjo23 Encounters DateTypeDepartmentCare IlqkNryyjivjhln05/26/2025 7:30 AM CSTOffice Visit [facility] [address] [place] [address] Darlene Erwin MD Follow Up (fever); Cough (Productive cough, fatigue, started about 8 days ago) 09/23/20259366Bsrxaa37/23/2025Refill [facility] [address] [facility] [address] [facility] [address] [place] [address] Mark Al MD Refill Request (Colchicine)from Last 3 Months Immunizations ImmunizationAdministration DatesNext DueAMB INFLUENZA, IIV4 (AGE=>6MOS) MDV (Flu Clinic Only)10/02/2019AMB Influenza, (Flumist) Live Intranasal,LAIV4 (Flu Clinic Only)07/26/2013MB Influenza, IIV3 (Age >=3 years)(Flu Clinic Only) 08/07/2010MB Influenza, IIV4 PF (=>6 mos Flulaval,Fluzone Fluarix)(Flu Clinic Only)08/11/2018COVID-19 VACCINE SPIKEVAX (MODERNA 50MCG/0.5ML) 12YO+ PFS 05/05/2025,3COVID-19 vaccine (SoftLayer 30mcg/0.3mL) PF, MDV 02/13/2021,2797JUfK64/28/2008DTaP-HIB (TriHIBIT)07/23/20044587EFwD-GkmH-DWT (Pediarix)2003,2003,2003HIB HbOC (HibTITER)2003, 2003,2003Hepatitis A (Peds)06/09/2015,05/17/2014Hepatitis B (Peds) 2003Human Papilloma Virus Hbzezrw0711/14/2014,08/04/2014,05/17/2014 Inactivated Polio Svcmsxy4405/26/2008Influenza A (H1N1), Inactivated (Age >=3 Years)09/15/2009Influenza Virus, Nrcomxmibmp46/04/2020,08/14/2012,07/23/2011, 08/07/2010,09/15/2009,08/14/2006,07/09/2005,07/23/2004Influenza, IIV3 (Age >=3 years)07/23/2011Influenza, FQM51311/19/2022,06/01/2020,09/03/2016,06/09/2015, 06/16/2014Influenza, Injectable, Mdck, Quadrivalent, W/eipcpeouxefh39/04/2020 Influenza,LAIV4 Live Intranasal (Flumist)08/11/2007MENINGOCOCCAL VACCINE 2 VIAL 2MO-55YO (MENVEO)05/18/2019,06/16/2014MMR05/26/2008,05/09/2004Pneumococcal conj 7-Valent (Prevnar 7)07/23/2004,2003,2003,2003Tdap11/02/2024, 05/17/2014Varicella Rpxuuoa8805/26/2008,05/09/2004 Family History Medical HistoryRelationNameCommentsHeart DiseaseMaternal Grandfathertriple bypassOtherMothertwo migrainesDiabetesPaternal GrandfatherDiabetesPaternal Uncle Heart DiseasePaternal UncleMIRelationNameStatusCommentsMaternal Grandfather MotherPaternal GrandfatherPaternal Uncle Social History Tobacco UseTypesPacks/DayYears UsedDateSmoking Tobacco: NeverSmokeless Tobacco: Never Tobacco Cessation:Counseling Given: No Comments:no exposure Alcohol UseStandard Drinks/WeekCommentsNot Currently0 (1 standard drink = 0.6 oz pure alcohol)PHQ-2AnswerDate RecordedPHQ-2 TOTAL BUGII50809/29/2023Social ConnectionsAnswerDate RecordedDo you often feel lonely or isolated from those around you?lcohol UseAnswerDate RecordedHow often do you have a drink containing alcohol?verage Number of DrinksNot on file 09/23/2025Frequency of Binge DrinkingNot on file09/23/2025Financial Resource StrainAnswerDate RecordedDifficulty of Paying Living Uhvxzaes919/22/2025 Difficulty of Paying Living ExpensesNot on file02/17/2025Food InsecurityAnswer Date RecordedDo you worry your food will run out before you are able to buy more?Transportation NeedsAnswerDate RecordedDoes lack of transportation keep you from medical appointments?Does lack of transportation keep you from work, meetings or getting things that you need?1 02/17/2025Housing StabilityAnswerDate RecordedWhat is your housing situation today?UtilitiesAnswerDate RecordedDo you have trouble paying for utilities (for example, heat, electricity, water, phone)? CommentsNoSex and Gender InformationValueDate RecordedSex Assigned at BirthNot on fileLegal WfzVunydm50/14/2013 7:43 AM CSTGender IdentityNot on fileSexual OrientationNot on fileTravel HistoryTravel StartTravel EndNew York05/19/2025 09/16/2025 Obstetrics History GravidaParaTermPretermABIABSABEctopicMultipleLivingLive [id number] Last Filed Vital Signs Vital SignReadingTime TakenCommentsBlood Tgsxxkwn051/6909/23/2025 7:29 AM SOFTWARE DESIGN MANAGER Yeuwn639109/23/2025 7:29 AM APVTwthgoyxoqx88.7 ??C (98 ??F)02/22/2025 11:28 AM CDT Respiratory Zsbc290602/22/2025 1:25 PM CDTOxygen Hqioidfgcd71%09/23/2025 7:29 AM CSTInhaled Oxygen Concentration--Uhmpcl752.2 kg (249 lb 8 oz)09/23/2025 7:29 AM OIATdtnue796.5 cm (5' 4.75)02/22/2025 11:28 AM CDTBody Mass Index41.84 02/22/2025 11:28 AM CDT Plan of Treatment DateTypeDepartmentCare Team (Latest Contact Info)Twhnoszzrjs16/29/2025 12:45 PM CSTNurse/Clinic Staff Only [facility] [address] [place] [address] 09/27/2025 1:20 PM CSTOffice Visit [facility] [address] [place] [address] Wedeking Michelle Aguirre, [address] [place] [address] 10/05/2025 2:30 PM CSTOffice Visit [facility] [address] [place] [address] Mark Al MD [address] [place] [address] Health MaintenanceDue DateLast DoneCommentsHIV for age 15-Pap test for age 21-Influenza Vaccine (#1)5111/19/2022, 06/01/2020, 10/02/2019, Additional history existsCOVID-19 vaccine series ( season)/03/2025, 09/18/2023, 09/19/2021, Additional history exists Depression screening for age 12+511/09/2023, 10/31/2023, 09/18/2023, Additional history existsBMI (ht and wt on same day) for age 18+02/17/2026 02/17/2025, 03/22/2024, 02/09/2024, Additional history existsTetanus booster 5011/02/2024, 05/17/2014Hepatitis B series for 19+Pevbffzjf84/26/2004, 2003, 2003, Additional history existsPneumococcal series for age 6-49Aged Out07/23/2004, 2003, 2003, Additional history existsNo longer eligible based on patient's age to complete this topicHPV series for age 9-64Ijpxtyxnx60/16/2015, 08/04/2014, 05/17/2014Hepatitis C screening for age 18-43Nopcxqtma60/15/2025 Procedures Procedure NamePriorityDate/TimeAssociated DiagnosisCommentsCBC WITH AUTO UOQAYOHKXSKUDhhbavr39/26/2025 8:40 AM SOFTWARE DESIGN MANAGER Low ferritin SEDIMENTATION FMQLFwpkjcl55/26/2025 8:40 AM SOFTWARE DESIGN MANAGER Febrile disorder BASIC METABOLIC TGXDKApmaedr29/26/2025 8:40 AM SOFTWARE DESIGN MANAGER IIH (idiopathic intracranial hypertension) CBC WITH AUTO RIXCXKFTHICFQwekani89/26/2025 8:40 AM SOFTWARE DESIGN MANAGER Low ferritin XALFYEQMHldliqg11/26/2025 8:40 AM SOFTWARE DESIGN MANAGER Low ferritin ANTI EPWQjvvqpk29/15/2025 8:46 AM CDT Abdominal pain, unspecified abdominal location Hand swelling Elevated C-reactive protein (CRP) Elevated sed rate Body mass index (BMI) 38.0-38.9, adult Urticaria, felt to be allergic CRP elevated Chronic fatigue Continuous severe abdominal pain Adenopathy, mesenteric penitentiary current use of diuretic from Last 3 Months or Most Recently Relevant to Health Maintenance Results * SEDIMENTATION RATE (09/23/2025 8:40 AM SOFTWARE DESIGN MANAGER)ComponentValueRef RangeTest Method Analysis TimePerformed AtPathologist SignatureSED RATE BY MODIFIED MARIA ESTHERERGREN6 < OR = 20 mm/09/24/2025 3:39 AM CSTQUEST DIAGNOSTICSSpecimen (Source) Anatomical Location / LateralityCollection Method / VolumeCollection Time Received TimeBloodBLOOD SPECIMEN / UnknownQuest Collect / Dyclqef7809/23/2025 8:40 AM CST09/23/2025 8:40 AM SOFTWARE DESIGN MANAGER Narrative Authorizing ProviderResult TypeResult StatusTravise Jayla Erwin MDHEMATOLOGY Final ResultPerforming OrganizationAddressCity/State/ZIP CodePhone Number [facility] [place] [address] [address], * CBC WITH AUTO DIFFERENTIAL (09/23/2025 8:40 AM SOFTWARE DESIGN MANAGER)ComponentValueRef RangeTest MethodAnalysis TimePerformed AtPathologist SignatureWHITE BLOOD CELL COUNT6.1 3.8 - 10.8 Thousand/uL09/24/2025 3:29 AM CSTQUEST DIAGNOSTICSRED BLOOD CELL COUNT4.433.80 - 5.10 Million/uL09/24/2025 3:29 AM CSTQUEST DIAGNOSTICS PZLAIAASRL54.711.7 - 15.5 g/dL09/24/2025 3:29 AM CSTQUEST DIAGNOSTICS STXLVUJAYZ22.535.9 - 46.0 %09/24/2025 3:29 AM CSTQUEST ESRIWRUKEIFDTH90.781.4 - 101.7 fL09/24/2025 3:29 AM CSTQUEST DGDWYGOFFHEYVN29.927.0 - 33.0 pg 09/24/2025 3:29 AM CSTQUEST PMVUPZTWPSZCPTV38.031.6 - 35.4 g/dL09/24/2025 3:29 AM CSTQUEST XGEXYYSAZACTUC56.011.0 - 15.0 %09/24/2025 3:29 AM CSTQUEST DIAGNOSTICSPLATELET RFWZM187431 - 400 Thousand/uL09/24/2025 3:29 AM CSTQUEST YMYVFXRMYDZNFI46.37.5 - 12.5 fL09/24/2025 3:29 AM [facility]ST[facility] YOFMJWWULRE22.7%09/24/2025 3:29 AM CSTQUEST NVYJTGPNYHAYHEOENTISWA31.2% 09/24/2025 3:29 AM CSTQUEST DIAGNOSTICSMONOCYTES5.7%09/24/2025 3:29 AM SOFTWARE DESIGN MANAGER [facility]SEOSINOPHILS2.1%09/24/2025 3:29 AM CST[facility] BASOPHILS0.3%09/24/2025 3:29 AM CSTQUEST DIAGNOSTICSABSOLUTE GQQWLIMTJAI0129 1500 - 7800 cells/uL09/24/2025 3:29 AM CSTQUEST DIAGNOSTICSABSOLUTE RQJKLLNFPAZ3188912 - 3900 cells/uL09/24/2025 3:29 AM [facility] ABSOLUTE EVCCABUHQ264689 - 950 cells/uL09/24/2025 3:29 AM [facility]ST[facility] ABSOLUTE AQMHMEYRCFJ60456 - 500 cells/uL09/24/2025 3:29 AM CSTQUEST DIAGNOSTICSABSOLUTE UPPGTAYRJ845 - 200 cells/uL09/24/2025 3:29 AM CSTQUEST DIAGNOSTICSSpecimen (Source)Anatomical Location / LateralityCollection Method / VolumeCollection TimeReceived TimeBloodBLOOD SPECIMEN / UnknownQuest Collect / Zevkwzk6509/23/2025 8:40 AM CST09/23/2025 8:40 AM SOFTWARE DESIGN MANAGER Narrative Authorizing ProviderResult TypeResult StatusDarlene Erwin MDHEMATOLOGY Final ResultPerforming OrganizationAddressCity/State/ZIP CodePhone Number [facility] [address] [address], [place] [phone] * FERRITIN (09/23/2025 8:40 AM SOFTWARE DESIGN MANAGER)ComponentValueRef RangeTest MethodAnalysis TimePerformed AtPathologist ZnvbqkualWFPXRCQY1244 - 154 ng/mL09/24/2025 5:02 AM CSTQUEST DIAGNOSTICSSpecimen (Source)Anatomical Location / Laterality Collection Method / VolumeCollection TimeReceived TimeBloodBLOOD SPECIMEN / UnknownQuest Collect / Zepnvfz0809/23/2025 8:40 AM CST09/23/2025 8:40 AM SOFTWARE DESIGN MANAGER Narrative Authorizing ProviderResult TypeResult StatusDarlene Erwin MDCHEMISTRY Final ResultPerforming OrganizationAddressCity/State/ZIP CodePhone Number [facility] [address] [address], [place] [phone] * BASIC METABOLIC PANEL (09/23/2025 8:40 AM SOFTWARE DESIGN MANAGER)ComponentValueRef RangeTest MethodAnalysis TimePerformed AtPathologist AesvmptqgONPDTT571956 - 146 mmol/L 09/24/2025 3:45 AM CSTQUEST DIAGNOSTICSPOTASSIUM3.93.5 - 5.3 mmol/L111/25/2024 3:45 AM CSTQUEST DIAGNOSTICSCARBON JPIUXTT9382 - 32 mmol/L111/25/2024 3:45 AM CSTQUEST IXOFMTXGIDLRELVZZB4182 - 99 mg/dL09/24/2025 3:45 AM CSTQUEST DIAGNOSTICSComment: ? Fasting reference interval CALCIUM8.88.6 - 10.2 mg/dL09/24/2025 3:45 AM CSTQUEST DIAGNOSTICSCREATININE0.83 0.50 - 0.96 mg/dL09/24/2025 3:45 AM CSTQUEST DIAGNOSTICSBUN/CREATININE RATIOSEE NOTE: (calc)09/24/2025 3:45 AM CSTQUEST DIAGNOSTICSComment: ?? Not Reported: BUN and Creatinine are within ?? reference range. ? SGUZ989> OR = 60 mL/min/1.14u34809/24/2025 3:45 AM CSTQUEST DIAGNOSTICSUREA NITROGEN (BUN)97 - 25 mg/dL09/24/2025 3:45 AM CSTQUEST DIAGNOSTICSELECTROLYTE LMLIQBE93 - 17 mmol/L (calc)09/24/2025 3:45 AM CSTQUEST ARXINPUGXCDRNFVYQOA35398 - 110 mmol/L111/25/2024 3:45 AM CSTQUEST DIAGNOSTICSSpecimen (Source)Anatomical Location / LateralityCollection Method / VolumeCollection TimeReceived TimeBlood BLOOD SPECIMEN / UnknownQuest Collect / Dzlhhqq7109/23/2025 8:40 AM CST09/23/2025 8:40 AM SOFTWARE DESIGN MANAGER Narrative Authorizing ProviderResult TypeResult StatusTravise Jayla Erwin MDCHEMISTRY Final ResultPerforming OrganizationAddressCity/State/ZIP CodePhone Number [facility] [address] [place] [address], [place] [phone] * ANTI HCV (01/11/2025 8:46 AM CDT)ComponentValueRef RangeTest MethodAnalysis TimePerformed AtPathologist SignatureHEPATITIS C ANTIBODYNON-REACTIVE NON-REACTIVEQuest Diagnostics-Luverne Medical CentereComment: HCV antibody was non-reactive. There is no laboratory evidence of HCV infection. In most cases, no further action is required. However, if recent HCV exposure is suspected, a test for HCV RNA (test code 80785) is suggested. For additional information please refer to http://education.HireAHelper/faq/VDA00v3 (This link is being provided for informational/ educational purposes only.) Specimen (Source)Anatomical Location / LateralityCollection Method / Volume Collection TimeReceived TimeBloodBLOOD SPECIMEN / Linffyk6501/11/2025 8:46 AM CDT 01/11/2025 8:47 AM CDT Narrative [facility] - 01/12/2025 1:55 PM CDT FASTING:NO FASTING: NO Authorizing ProviderResult TypeResult StatusChristopher Chuck Al MDSEND OUTSFinal ResultPerforming OrganizationAddressCity/State/ZIP CodePhone Number [facility] [address] [place] [address], [employer] [facility] [address] [place] [address] from Last 3 Months or Most Recently Relevant to Health Maintenance Insurance * Guarantor: Sugey Mckeon TypeRelation to PatientDate of BirthPhone Billing AddressPersonal/YozanjYrwmqk15/08/1964 [address] [place] [address] Advance Directives * Full Code (Latest Code Status on File) Date ActivatedDate InactivatedComments02/22/2025 11:09 AM02/23/2025 2:29 AM QuestionAnswerCommentsCode Status Discussion:* Not Discussed * Full Code Date ActivatedDate InactivatedComments11/08/2024 10:56 AM11/08/2024 7:36 PM QuestionAnswerCommentsCode Status Discussion:* Reviewed Preferences Care Teams Team MemberRelationshipSpecialtyStart DateEnd Date Darlene Erwin MD [address] [place] [address] PCP - GeneralFamily Practice12/25/23 Robert Rogel MD [address] [place] [address] Neurology04/20/24 Mark Al MD [address] [place] [address] Rheumatology01/11/25
[2025-09-24 20:23] VITALS: BP 131/83; PULSE 90; RESP 18; TEMP 36.7; O2SAT 95
[2025-09-24 20:33] VITALS: O2SAT 95
--- NOTE | 2025-09-24 20:46 | ED.GENADULT ---
HPI - General Adult General Chief complaint: Allergic Reaction Stated complaint: allergic reaction - anaph Time Seen by Provider: 09/24/25 20:45 History of Present Illness HPI narrative: Pt states she ate raspberry jelly at 1900. 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 Pt states she did not use epi pen, but took 4 benadryl at 2000. Pt states symptoms are not worsening. Pt states she is currently recovering from bronchitis. Hx familial mediterranean fever, per pt. 20-year-old presenting to emergency with concern of a reaction to raspberry. did began to feel tightness in her throat. voice was hoarse. Mild difficulty breathing. took 100 mg of diphenhydramine around 40 minutes to an hour prior to this interview. She does think she has improved. Is laryngitic. Tightness in her throat. No abdominal pain or nausea. Started yesterday on course of prednisone as well as azithromycin for bronchitis. Related Data Home Medications ?Medication ?Instructions ?Recorded ?Confirmed celecoxib 200 mg capsule 200 mg PO BID 09/07/24 09/24/25 furosemide 20 mg tablet 20 mg PO QAM 09/07/24 09/24/25 trazodone 50 mg tablet 50 mg PO QPM 09/07/24 09/24/25 colchicine 0.6 mg tablet 0.6 mg PO BID 09/24/25 09/24/25 duloxetine 20 mg capsule,delayed mg PO 09/24/25 release epinephrine 0.3 mg/0.3 mL IM allergies 09/24/25 injection, auto-injector Previous Rx's ?Medication ?Instructions ?Recorded famotidine 20 mg tablet 20 mg PO BID #60 tabs 09/07/24 sucralfate 1 gram tablet 1 g PO TID PRN #90 tabs 09/07/24 Allergies Allergy/AdvReac Type Severity Reaction Status Date / Time basil Allergy Severe Anaphylaxis Verified 09/24/25 20:31 cinnamon Allergy Severe Anaphylaxis Verified 09/24/25 20:31 mushroom Allergy Severe Anaphylaxis Verified 09/24/25 20:31 pine nut Allergy Severe Anaphylaxis Verified 09/24/25 20:31 strawberry Allergy Severe Anaphylaxis Verified 09/24/25 20:31 blue dye Allergy Intermediate Hives Verified 09/24/25 20:31 gold Au 198 Allergy Intermediate Hives Verified 09/24/25 20:31 nickel Allergy Intermediate Hives Verified 09/24/25 20:31 red meat Allergy Intermediate Hives Uncoded 09/24/25 20:31 Review of Systems Status of ROS: Reports: 6 or more systems reviewed and unremarkable except as noted in History and below [facility] Medical History Flat feet ?M21.41 - Flat foot [pes planus] (acquired), right foot (ICD-10) ?M21.42 - Flat foot [pes planus] (acquired), left foot (ICD-10) Anxiety ?F41.9 - Anxiety disorder, unspecified (ICD-10) Sprain of left ankle ?S93.402A - Sprain of unspecified ligament of left ankle, initial encounter (ICD-10) Surgical History [place] teeth extracted ?K08.409 - Partial loss of teeth, unspecified cause, unspecified class (ICD-10) Social History Smoking Status: Never smoker Second hand tobacco smoke exposure: No How often do you have a drink containing alcohol: never AUDIT-C Alcohol total score: 0 Non-prescribed substance use: denies use Exam Narrative: Exam Narrative: Laryngitic. No stridor though. Lungs are clear. Heart in regular rate and rhythm. Skin is warm and dry without apparent rash. Oropharynx is unremarkable. Neck is supple without lymphadenopathy. Const: Vital Signs, click to edit/add: Vital Signs - 24 hr 09/24/25 20:23 Temperature 98.0 F Pulse Rate [Pulse Oximeter] 90 Respiratory Rate 18 Blood Pressure [Ri t Upper Arm] 131/83 Pulse Oximetry 95 Oxygen Delivery Me thod Room Air Documenting provider has reviewed patient's vital signs: yes Course Vital Signs Vital signs: Initial Vital Signs Temperature 98.0 F 09/24/25 20:23 Temperature Source Temporal Artery Scan 09/24/25 20:23 Pulse Rate 90 09/24/25 20:23 Respiratory Rate 18 09/24/25 20:23 Blood Pressure 131/83 09/24/25 20:23 Blood Pressure Mean 99 09/24/25 20:23 Blood Pressure Position Sitting 09/24/25 20:23 Pulse Oximetry 95 09/24/25 20:23 Oxygen Delivery Method Room Air 09/24/25 20:23 Vital Signs Temperature 98.0 F 09/24/25 20:23 Pulse Rate 90 09/24/25 20:23 Respiratory Rate 18 09/24/25 20:23 Blood Pressure 131/83 09/24/25 20:23 Pulse Oximetry 95 09/24/25 20:23 Oxygen Delivery Method Room Air 09/24/25 20:23 Temperature 98.0 F 09/24/25 22:44 Pulse Rate 85 09/24/25 22:44 Respiratory Rate 18 09/24/25 22:44 Blood Pressure 127/74 09/24/25 22:44 Pulse Oximetry 95 09/24/25 22:44 Oxygen Delivery Method Room Air 09/24/25 22:44 Medications Administered Medications: Discontinued Medications Generic Name Dose Route Start Last Admin Trade Name Micheletq PRN Reason Stop Dose Admin Ondansetron HCl 4 mg 09/24/25 21:25 09/24/25 21:25 Ondansetron Odt 4 Mg Tab PO 09/24/25 21:26 4 mg ONCE ONE Administration Medical Decision Making MDM Narrative Medical decision making narrative: may have experienced some anaphylaxis from this raspberry jelly. Already taking steroids/prednisone. Has taken large dosing of diphenhydramine. Overall seems well at this time. Oxygenating well. Monitor on oximetry for worsening. Some nausea developed and was given Zofran. Noted to be improved now. On reassessment is no longer laryngitic. Onset she does feel much improved. Feels can go home. Does have EpiPen available. See patient discharge plan for further discussion I am relieved you are feeling better. Normally I would tell people to take few days of prednisone but you already have that. Stay well-hydrated. If this happens again, would take diphenhydramine and present to the emergency department. If things seem to be escalating quickly, and have exposure to known concerning allergen, would also use your EpiPen. Return as needed. Medical Records Medical records reviewed: Yes I reviewed the patient's medical records Discharge Plan Discharge Clinical Impression: Allergic reaction, Laryngitis Patient Disposition: Home w/ Parent or Adult Condition: Improved Additional Instructions: I am relieved you are feeling better. Normally I would tell people to take few days of prednisone but you already have that. Stay well-hydrated. If this happens again, would take diphenhydramine and present to the emergency department. If things seem to be escalating quickly, and have exposure to known concerning allergen, would also use your EpiPen. Return as needed. Prescriptions: No Action celecoxib 200 mg capsule 200 mg PO BID trazodone 50 mg tablet 50 mg PO QPM furosemide 20 mg tablet 20 mg PO QAM famotidine 20 mg tablet 20 mg PO BID Qty: 60 2RF sucralfate 1 gram tablet 1 g PO TID PRNQty: 90 0RF epinephrine 0.3 mg/0.3 mL auto-injector IM colchicine 0.6 mg tablet 0.6 mg PO BID duloxetine 20 mg capsule,delayed release(DR/EC) PO Follow Up/Referrals: Darlene Erwin MD [Primary Care Provider, Family Practice] Stand Alone Forms: [facility] Info Instructions
[2025-09-24] MEDS: ONDANSETRON ODT 4 MG TAB PO (21:25)
[2025-09-24 22:44] VITALS: BP 127/74; PULSE 85; RESP 18; TEMP 36.7; O2SAT 95
== END 2025-09-24 22:58 | disposition home or self-care (01) ==
PROVIDERS: Emergency Provider Family Medicine; PCP Family Medicine
DX: T78.19XA Other adverse food reactions, not elsewhere classified, initial encounter (principal); J04.0 Acute laryngitis; Z91.018 Allergy to other foods
CPT/HCPCS: 94761; 99283; 99284; A9270